=== PATIENT | male | born 2000 | race Caucasian/White ===

== ENCOUNTER 2018-01-01 18:58 | Emergency (ER) | payer BC ==
--- NOTE | 2018-01-01 20:48 | RAD ---
Indication: Headaches. CT of the brain was performed without IV contrast. Ventricular structures are midline. No midline shift is noted. The extra-axial spaces are unremarkable. There is no evidence of intracranial mass or hemorrhage. No other high or low density lesions are identified. Mastoid air cells and paranasal sinuses are otherwise unremarkable. IMPRESSION: No intracranial mass or hemorrhage is noted.
[2018-01-01 21:33] VITALS: BP 137/72
--- NOTE | 2018-01-03 19:32 | ED ---
Troy Calvo Nilda, scribed for Taylor Venegas MD on 01/01/18 at 2020 . Headache - HPI Summary HPI Summary: This patient is a 17 year old M accompanied by mother who was recommended by health center at [facility] to visit [facility] requesting CT scan after c/o intermittent left-sided neck pain and severe pounding headache s/p exercising at gym 6 days ago. He states symptoms resolved and then reappeared during exercise the day after initial onset. Pt states 4 days ago he stopped going to the gym and has not had symptoms since. The patient rates the current pain 0/10 in severity. Symptoms aggravated by lifting weights, and alleviated by rest. Patient states no daily medications. - History Of Current Complaint Chief Complaint: EDGeneral Stated Complaint: HEADACHES Time Seen by Provider: 01/01/18 19:54 Hx Obtained From: Patient Onset/Duration: Sudden Onset, Started days ago, Resolved Initially Headache Was: Severe Currently Pain Is: Current Pain Scale(0-10)= - 0 Timing: Intermittent, Lasting:, Hours Character: Throbbing Location of Headache: Other: - back of head Radiates to: back of neck Aggravating Factor: Other - lifting weights Allevating Factors: Rest - Allergies/Home Medications Allergies/Adverse Reactions: Allergies Allergy/AdvReac Type Severity Reaction Status Date / Time No Known Allergies Allergy Verified 01/01/18 19:14 PMH/Surg Hx/FS Hx/Imm Hx Sensory History: Denies: Hx Legally Blind EENT History: Denies: Hx Deafness Infectious Disease History: No Infectious Disease History: Denies: Traveled Outside the [place] in Last 30 Days - Family History Known Family History: Negative: Hypertension, Diabetes - Social History Occupation: Student Review of Systems Positive: Other - left sided neck pain (resolved) Positive: Headache - (resolved) All Other Systems Reviewed And Are Negative: Yes Physical Exam - Summary Physical Exam Summary: VITAL SIGNS: Reviewed. GENERAL: Patient is a well-developed and nourished male who is lying comfortable in the stretcher. Patient is not in any acute respiratory distress. HEAD AND FACE: No signs of trauma. No ecchymosis, hematomas or skull depressions. No sinus tenderness. EYES: PERRLA, EOMI x 2, No injected conjunctiva, no nystagmus. EARS: Hearing grossly intact. Ear canals and tympanic membranes are within normal limits. MOUTH: Oropharynx within normal limits. NECK: Supple, trachea is midline, no adenopathy, no JVD, no carotid bruit, no c- spine tenderness, neck with full ROM. CHEST: Symmetric, no tenderness at palpation LUNGS: Clear to auscultation bilaterally. No wheezing or crackles. CVS: Regular rate and rhythm, S1 and S2 present, no murmurs or gallops appreciated. ABDOMEN: Soft, non-tender. No signs of distention. No rebound no guarding, and no masses palpated. Bowel sounds are normal. EXTREMITIES: FROM in all major joints, no edema, no cyanosis or clubbing. NEURO: Alert and oriented x 3. No acute neurological deficits. Speech is normal and follows commands. SKIN: Dry and warm Triage Information Reviewed: Yes Vital Signs On Initial Exam: Initial Vitals Temp Pulse Resp BP Pulse Ox 99.1 F 82 16 127/77 99 01/01/18 19:07 01/01/18 19:07 01/01/18 19:07 01/01/18 19:07 01/01/18 19:07 Vital Signs Reviewed: Yes - [place] Coma Scale Best Eye Response: 4 - Spontaneous Best Motor Response: 6 - Obeys Commands Best Verbal Response: 5 - Oriented Coma Scale Total: 15 Diagnostics - Vital Signs Vital Signs Temp Pulse Resp BP Pulse Ox 01/01/18 19:07 99.1 F 82 16 127/77 99 - Laboratory Lab Statement: Any lab studies that have been ordered have been reviewed, and results considered in the medical decision making process. - CT Brain CT Interpretation Completed By: Radiologist - CT Brain reveals no intracranial mass or hemorrhage is noted. Dr. Venegas has reviewed this radiology report. Re-Evaluation - Re-Evaluation First Eval Re-Evaluation Time: 22:10 Comment: Reviewed CT scan with pt and pt's mother as well D/C plan. Headache Course/Dx - Course Assessment/Plan: Pt is a 17 y/o complaining of neck pain and headache while doing pull ups at the gym about 6 days ago. Pt has been asymptomatic for 3-4 days. Pt went to doctor. Doctor concerned and advised CT head scan. Family and pt insist on CT scan in ED. CT negative. Pt will be D/C with Dx headache. - Diagnoses Provider Diagnoses: Headache Discharge - Discharge Plan Condition: Stable Disposition: HOME Patient Education Materials: Acute Headache (ED) Referrals: [facility] [Primary Care Provider] - 3 Days Additional Instructions: RETURN TO THE EMERGENCY DEPARTMENT FOR CHANGING OR WORSENING SYMPTOMS. The documentation as recorded by the Troy rangel Nilda accurately reflects the service I personally performed and the decisions made by Theo nielsen Abdul, MD.
== END 2018-01-01 21:32 | disposition home or self-care (01) ==
LOC: ED 18:58
DX: R51 Headache (principal)
CPT/HCPCS: 70450; 99282

== ENCOUNTER 2018-07-09 01:42 | Emergency (ER) | payer BC ==
--- NOTE | 2018-07-09 01:53 | ED ---
Substance Abuse/Use - HPI Summary HPI Summary: This patient is a 17 year old M BIBA to [facility] with a chief complaint of EtOH intoxication since earlier this evening. Patients friend reported that the patient fell and hit his head but EMS did not observe any signs of a head injury. EMS also report the patient has been vomiting. Patients friends denied the patient consumed any other substances besides EtOH. Patient is an [employer] student. LEVEL FIVE CAVEAT DUE TO AMS. - History Of Current Complaint Chief Complaint: EDSubstanceAbuse Stated Complaint: ETOH Time Seen by Provider: 07/09/18 01:47 Hx Obtained From: EMS Hx From Patient Unobtainable Due To: Altered Mental Status Ingestion History: Type/Name Of Drug - EtOH Overdose Characteristics: Oral Timing Of Abuse: Binge Use Severity Currently: Moderate Character: Lethargic Associated Signs And Symptoms: Vomiting, Altered Mental Status - Allergies/Home Medications Allergies/Adverse Reactions: Allergies Allergy/AdvReac Type Severity Reaction Status Date / Time No Known Allergies Allergy Verified 01/06/18 14:39 PMH/Surg Hx/FS Hx/Imm Hx Endocrine/Hematology History: Denies: Hx Diabetes Cardiovascular History: Denies: Hx Hypertension, Hx Pacemaker/ICD History: Denies: Hx Renal Disease Sensory History: Denies: Hx Legally Blind, Hx Deafness, Hx Hearing Aid Opthamlomology History: Denies: Hx Legally Blind Psychiatric History: Denies: Hx Panic Disorder - Surgical History Surgery Procedure, Year, and Place: DENIES - Family History Known Family History: Negative: Hypertension, Diabetes - Social History Occupation: Student Alcohol Use: Weekly Substance Use Type: Reports: None Smoking Status (MU): Never Smoked Tobacco Review of Systems Positive: Vomiting Neurological: Other - lethargic All Other Systems Reviewed And Are Negative: No - Comments Additional Review of Systems Comments: LEVEL FIVE CAVEAT DUE TO AMS Physical Exam - Summary Physical Exam Summary: Appearance: Well-appearing, Well-nourished, lying in bed comfortable. Patient is lethargic and appears intoxicated Skin: Warm, dry, no obvious rash Eyes: sclera anicteric, no conjunctival pallor ENT: mucous membranes moist Neck: deferred Respiratory: No signs of respiratory distress Cardiovascular: Appears well perfused, pulses are nml Abdomen: deferred Musculoskeletal: Moving all 4 extremities without obvious discomfort Neurological: Awake and alert, mentation is normal, speech is fluent and appropriate Psychiatric: affect is normal, does not appear anxious or depressed Triage Information Reviewed: Yes Vital Signs Reviewed: Yes Course/Dx - Diagnoses Provider Diagnoses: Alcohol intoxication Discharge - Sign-Out/Discharge Documenting (check all that apply): Patient Departure - Discharge Plan Condition: Improved Disposition: HOME Patient Education Materials: Abuse of Alcohol (ED) Referrals: [facility] [Z.BUSINESS, APPLICATION, OTHER] - - Billing Disposition and Condition Condition: IMPROVED Disposition: Home - Attestation Statements Document Initiated by Scribe: Yes Documenting Scribe: Helen Thomas Provider For Whom Kunal is Documenting (Include Credential): Magno Spaulding MD Scribe Attestation: Helen Calvo scribed for Magno Spaulding MD on 07/09/18 at 0343. Scribe Documentation Reviewed: Yes Provider Attestation: The documentation as recorded by the scribeHelen accurately reflects the service I personally performed and the decisions made by me, Magno Spaulding MD
[2018-07-09 09:11] VITALS: BP 120/69
== END 2018-07-09 09:06 | disposition home or self-care (01) ==
LOC: ED 01:42
DX: F10.129 Alcohol abuse with intoxication, unspecified (principal)
CPT/HCPCS: 99282